=== PATIENT | female | born 1955 | race Caucasian/White ===

== ENCOUNTER 2021-08-31 09:24 | Emergency (ER) | payer MEDICARE, MEDICAID ==
[2021-08-31] MEDS ORDERED: HYDROcodone/Acetaminophen 5/325 mg Tablet ONE (10:17)
== END 2021-08-31 14:23 | disposition home or self-care (01) ==
LOC: CSHERS 09:24
DX: M25.552 Pain in left hip (principal); R60.0 Localized edema; E11.9 Type 2 diabetes mellitus without complications; I10 Essential (primary) hypertension; E78.5 Hyperlipidemia, unspecified; E03.9 Hypothyroidism, unspecified; W19.XXXA Unspecified fall, initial encounter
CPT/HCPCS: 71045; 72170; 72192

== ENCOUNTER 2021-09-03 01:14 | Emergency (ER) | payer MEDICARE, MEDICAID ==
[2021-09-03] MEDS ORDERED: Ibuprofen 200 MG TAB ONE (01:43)
== END 2021-09-03 03:00 | disposition home or self-care (01) ==
LOC: CSHERS 01:14
DX: R07.89 Other chest pain (principal); M25.552 Pain in left hip; Z86.73 Personal history of transient ischemic attack (TIA), and cerebral infarction without residual deficits; E11.9 Type 2 diabetes mellitus without complications; E03.9 Hypothyroidism, unspecified; E78.5 Hyperlipidemia, unspecified; I10 Essential (primary) hypertension; Z79.899 Other long term (current) drug therapy; Z79.82 Long term (current) use of aspirin; Z79.84 Long term (current) use of oral hypoglycemic drugs
CPT/HCPCS: 71045

== ENCOUNTER 2023-05-25 20:17 | Emergency (ER) | payer MEDICAID, OTHER ==
[2023-05-25] MEDS ORDERED: traMADol HCl 50 MG TAB ONE (21:58)
== END 2023-05-25 23:24 | disposition home or self-care (01) ==
LOC: CSHERS 20:17
DX: M25.552 Pain in left hip (principal); I10 Essential (primary) hypertension; E11.9 Type 2 diabetes mellitus without complications; E03.9 Hypothyroidism, unspecified; Z75.3 Unavailability and inaccessibility of health-care facilities; Z86.73 Personal history of transient ischemic attack (TIA), and cerebral infarction without residual deficits; Z87.311 Personal history of (healed) other pathological fracture; Z79.899 Other long term (current) drug therapy; Z79.84 Long term (current) use of oral hypoglycemic drugs